=== PATIENT | female | born 1990 | race Caucasian/White ===

== ENCOUNTER → 2016-12-09 | Outpatient (CLI) | payer OTHER ==
[~2016-12-09] MED LIST: ABILIFY5 MG PO; ADDERALL20 MG PO; ATIVAN 0.50.5 MG/TAB PO; FISH OIL500 MG PO; FLEXERIL 1010 MG/TAB PO; IMODIUM 2MG CAPS2 MG PO; LATUDA40 MG PO; LITHIUM CA150 MG/CAP PO; MINIPRESS2 MG; NASACORT AQ N16.5 GM NS; NO HOME MEDICATIONS; PERCOCET 325 MG1 TA2 PO; PREDNISONE20 MG PO; PRIL40 PO; PRISTIQ100 MG PO; PROZAC40 MG PO; TAMIFLU 75MG75 MG PO; ZITHROMAX Z PA250 MG PO; ZYRTEC 10MG10 MG PO
== END ==
LOC: COL.RAD 14:00
DX: M51.36 Other intervertebral disc degeneration, lumbar region (principal); M48.06 Spinal stenosis, lumbar region; R32 Unspecified urinary incontinence; Z98.890 Other specified postprocedural states
CPT/HCPCS: A9585

== ENCOUNTER 2018-03-21 08:11 | Emergency (ER) | payer SELFPAY ==
[~2018-03-21] VITALS: Ht 172.7 cm; Wt 103.1 kg
[2018-03-21] MEDS ORDERED: NEURONTIN600 MG/TAB PO (08:22)
[2018-03-21] MEDS ORDERED: CYMBALTA 60MG60 MG PO (08:22)
[2018-03-21] MEDS ORDERED: CELEBREX 200MG200 MG PO (08:22)
[2018-03-21] MEDS ORDERED: BUSPAR10 MG PO (08:23)
[2018-03-21] MEDS ORDERED: LIORESAL 1010 MG/TAB PO (08:23)
[2018-03-21] MEDS ORDERED: GLUCOPHAGE500 MG/TAB PO (08:23)
[2018-03-21] MEDS ORDERED: ALDACTONE 100M100 MG PO (08:24)
[2018-03-21 09:11] LABS: BASO % 0.4 % (0.0-2.0); EOS # 0.3 (0.0-0.7); EOS % 3.8 % (0-4.0); GRAN # 4.9 (1.4-6.5); GRAN % 58.6 % (42.2-75.2); HEMATOCRIT 46.1 % (37.0-47.0); HEMOGLOBIN 15.7 g/dl (12.5-16.0); LYMPH # 2.6 (1.2-3.4); LYMPH % 30.6 % (20.0-51.0); MEAN CELL VOLUME 85 fl (80.0-100.0); MEAN CORPUSCULAR HEMOGLOBIN 29 pg (27.0-31.0); MEAN CORPUSCULAR HGB CONC 34 g/dl (33.0-37.0); MEAN PLATELET VOLUME 8.8 fl (7.4-10.4); MONO # 0.5 (0.1-0.6); MONO % 6.2 % (1.7-9.3); PLATELET COUNT 332 K/mm3 (130-400); RED BLOOD COUNT 5.41 M/mm3 (4.10-5.30); REDCELL DISTRIBUTION WIDTH-CV 12.4 % (11.5-14.5)
[2018-03-21 09:28] LABS: ANION GAP 8 mmol/L (7-16); BLOOD UREA NITROGEN 17 mg/dL (7-17); CALCIUM 9.5 mg/dL (8.4-10.2); CARBON DIOXIDE 24 mmol/L (22-30); CHLORIDE 107 mmol/L (98-107); CREATININE, serum 0.71 mg/dL (0.52-1.25); GLUCOSE 94 mg/dL (74-106); POTASSIUM 4.4 mmol/L (3.4-5.0); SODIUM 140 mmol/L (137-145)
[2018-03-21 09:29] LABS: C-REACTIVE PROTEIN < 0.5 mg/dL (0.0-0.9)
[2018-03-21 09:31] LABS: ERYTHROCYTE SEDIMENTATION RATE 2 mm/hr (0-20)
[2018-03-21] MEDS ORDERED: LIDODERM 5% PATC1 EA TP (09:39)
[2018-03-21] MEDS ORDERED: FLEXERIL 1010 MG/TAB PO (09:39)
[2018-03-21 10:35] VITALS: BP 120/84; PULSE 73; TEMP 97.7
== END 2018-03-21 10:35 | disposition home or self-care (01) ==
LOC: COL.ER 08:11
PROVIDERS: Physician Assistant
DX: G89.29 Other chronic pain (principal); M54.5 Low back pain; F31.9 Bipolar disorder, unspecified; F90.9 Attention-deficit hyperactivity disorder, unspecified type; Z98.890 Other specified postprocedural states
CPT/HCPCS: J1885